=== PATIENT | female | born 1985 | race Caucasian/White ===

== ENCOUNTER 2019-03-16 20:10 | Emergency (ER) | payer BC ==
[2019-03-16] MEDS ORDERED: DIPHENHYDRAMINE 50 MG/ML VIAL ONE (21:46)
[2019-03-16] MEDS ORDERED: METOCLOPRAMIDE 5 MG TAB ONE (21:46)
[2019-03-16] MEDS ORDERED: dexAMETHasone 10 MG/ML VIAL ONE (22:02)
[2019-03-16] MEDS ORDERED: KETOROLAC 30 MG/ML INJ ONE (22:02)
[2019-03-16] MEDS ORDERED: ONDANSETRON 4 MG/2 ML VIAL ONE (22:03)
[2019-03-16] MEDS ORDERED: NA CHLORIDE 0.9% 1,000 ML ONE (22:03)
[2019-03-16 22:52] LABS: Urine Blood TRACE (NEG); Urine Glucose NEGATIVE (NEG); Urine Protein NEGATIVE (NEG)
--- NOTE | 2019-03-16 23:25 | ER ---
Nurse's Notes [facility] Name: Joe Pelletier Age: 33 yrs Sex: Female : 1985 Arrival Date: 03/16/2019 Time: 20:11 Bed 5 Private MD: Diagnosis: Headache Presentation: 03/16 20:25 Presenting complaint: Patient states: Headache, body aches, chills, low grade temp, ph nausea, and anxiety, states, " I've been having a panic attack for like 10 hours.". Transition of care: patient was not received from another setting of care. Onset of symptoms was March 16, 2019. Risk Assessment: Do you want to hurt yourself or someone else? Patient reports no desire to harm self or others. Initial Sepsis Screen: Does the patient meet any 2 criteria? No. Patient's initial sepsis screen is negative. Does the patient have a suspected source of infection? No. Patient's initial sepsis screen is negative. Care prior to arrival: None. 20:25 Method Of Arrival: Ambulatory ph 20:25 Acuity: HUNTER 3 ph Triage Assessment: 21:00 Headache History: The patient has had previous headaches and this one is similar to wh previous episodes. Pain: Pain began 1 day ago. Also complains of nausea. 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 - Social history:: Smoking status: Patient/guardian denies using tobacco. - Ebola Screening: : Patient negative for fever greater than or equal to 101.5 degrees Fahrenheit, and additional compatible Ebola Virus Disease symptoms Patient denies exposure to infectious person. Screenin:00 Abuse screen: Denies threats or abuse. Denies injuries from another. Nutritional wh screening: No deficits noted. Tuberculosis screening: No symptoms or risk factors identified. Fall Risk None identified. Assessment: 21:00 General: Appears in no apparent distress. Behavior is calm, cooperative, appropriate wh for age. Pain: Complains of pain in MIgraine Headache Pain does not radiate. Pain currently is 9 out of 10 on a pain scale. Neuro: Level of Consciousness is awake, alert, obeys commands, Oriented to person, place, time, situation, Appropriate for age Reports headache. Cardiovascular: Heart tones S1 S2. Respiratory: Airway is patent Respiratory effort is even, unlabored, Respiratory pattern is regular, symmetrical. GI: Abdomen is flat, non-distended. : No signs and/or symptoms were reported regarding the genitourinary system. EENT: No signs and/or symptoms were reported regarding the EENT system. Derm: Skin is intact, is healthy with good turgor, Skin is pink, warm \\T\\ dry. normal. Musculoskeletal: Circulation, motion, and sensation intact. 22:05 Reassessment: Patient appears in no apparent distress at this time. No changes from previously documented assessment. Patient and/or family updated on plan of care and expected duration. Pain level reassessed. Patient is alert, oriented x 3, equal unlabored respirations, skin warm/dry/pink. 23:14 Reassessment: Patient appears in no apparent distress at this time. No changes from previously documented assessment. Patient and/or family updated on plan of care and expected duration. Pain level reassessed. Patient is alert, oriented x 3, equal unlabored respirations, skin warm/dry/pink. 23:43 Reassessment: Patient appears in no apparent distress at this time. No changes from previously documented assessment. Patient and/or family updated on plan of care and expected duration. Pain level reassessed. Patient is alert, oriented x 3, equal unlabored respirations, skin warm/dry/pink. Patient denies pain at this time. Patient states feeling better. Patient states symptoms have improved. Vital Signs: 20:29 BP 139 / 83; Pulse 112; Resp 18; Temp 98.2; Pulse Ox 100% on R/A; Weight 82.55 kg; ph Height 5 ft. 11 in. (180.34 cm); 22:00 BP 96 / 57; Pulse 83; Resp 18; Pulse Ox 99% ; wh 23:15 BP 96 / 66; Pulse 79; Resp 18; Pulse Ox 98% ; wh 20:29 Body Mass Index 25.38 (82.55 kg, 180.34 cm) ph ED Course: 20:11 Patient arrived in ED. cf2 20:28 Triage completed. ph 21:00 Arm band placed on right wrist. 21:00 Patient has correct armband on for positive identification. Placed in gown. Bed in low wh position. Call light in reach. Side rails up X 1. Pulse ox on. NIBP on. 21:46 Maurice Wise PA is PHCP. 21:46 Rogerio Oropeza MD is Attending Physician. 21:56 Anastacia Daley is Primary Nurse. 22:00 Inserted saline lock: 22 gauge in right antecubital area, using aseptic technique. Blood collected. 23:43 No provider procedures requiring assistance completed. IV discontinued, intact, bleeding controlled, No redness/swelling at site. Administered Medications: 21:42 CANCELLED (PO instead): Reglan 10 mg IVP once; over 1 to 2 minutes dm5 21:56 Drug: Benadryl 25 mg Route: IVP; Site: right antecubital; 23:43 Follow up: Response: No adverse reaction 21:56 Drug: Reglan 10 mg Route: PO; 23:43 Follow up: Response: No adverse reaction 22:15 Drug: NS 0.9% 1000 ml Route: IV; Rate: 1 bolus; Site: right antecubital; 23:44 Follow up: Response: No adverse reaction; IV Status: Completed infusion 22:15 Drug: Decadron - Dexamethasone 10 mg Route: IVP; Site: right antecubital; 23:44 Follow up: Response: No adverse reaction 22:20 Drug: TORadol 15 mg Route: IVP; Site: right antecubital; 23:44 Follow up: Response: No adverse reaction; Pain is decreased 22:23 Drug: Zofran 4 mg Route: IVP; Site: right antecubital; 23:44 Follow up: Response: No adverse reaction Outcome: 23:22 Discharge ordered by . 23:43 Discharged to home ambulatory, with family. 23:43 Condition: stable 23:43 Discharge instructions given to patient, family, Instructed on discharge instructions, follow up and referral plans. medication usage, POC Demonstrated understanding of instructions, follow-up care, medications, POC Prescriptions given X 1. 23:44 Patient left the ED. Signatures: Marizol Easton RN RN ph Maurice Wise PA PA cp Habalo, Winsy Jackeline Weira cf2 Rey, Claudia RN dm5
--- NOTE | 2019-03-16 23:26 | EDPHYS ---
Physician Documentation [facility] Name: Joe Pelletier Age: 33 yrs Sex: Female : 1985 Arrival Date: 03/16/2019 Time: 20:11 Bed 5 Private MD: ED Physician Rogerio Oropeza HPI: 03/16 22:00 This 33 yrs old Female presents to ER via Ambulatory with complaints of cp Headache, Panic Attack. 22:00 The patient complains of pain to the top of head and forehead. cp 22:00 The patient describes the headache as aching, constant. Onset: The symptoms/episode cp began/occurred today. Associated signs and symptoms: Pertinent negatives: fever, neck stiffness, paresthesias, sinus congestion, sinus tenderness, vision loss. Headache History: The patient has had previous headaches and this one is similar to previous episodes. Patient reports she became upset today and started having an anxiety attack. Anxiety has resolved, but patient c/o headache similar to previous migraines. 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 - Social history:: Smoking status: Patient/guardian denies using tobacco. - Ebola Screening: : Patient negative for fever greater than or equal to 101.5 degrees Fahrenheit, and additional compatible Ebola Virus Disease symptoms Patient denies exposure to infectious person. ROS: 22:05 Constitutional: Negative for body aches, chills, fever, poor PO intake. cp 22:05 Eyes: Negative for injury, pain, redness, and discharge. cp 22:05 ENT: Negative for drainage from ear(s), ear pain, sinus congestion, sinus pain, sore throat, difficulty swallowing, difficulty handling secretions. 22:05 Neck: Negative for pain with movement, pain at rest, stiffness. 22:05 Cardiovascular: Negative for chest pain. 22:05 Respiratory: Negative for cough, shortness of breath, wheezing. 22:05 Abdomen/GI: Negative for abdominal pain, vomiting, diarrhea, constipation. 22:05 : Negative for urinary symptoms. 22:05 Skin: Negative for rash. 22:05 Neuro: Positive for headache, Negative for altered mental status, numbness, weakness. 22:05 Psych: Positive for anxiety, Negative for depression, auditory hallucinations, visual hallucinations. 22:05 All other systems are negative. Exam: 22:15 Constitutional: The patient appears in no acute distress, alert, awake, cp non-diaphoretic, non-toxic, well developed, well nourished. 22:15 Head/Face: Normocephalic, atraumatic. cp 22:15 Eyes: Periorbital structures: appear normal, Pupils: equal, round, and reactive to cp light and accomodation, Extraocular movements: intact throughout, Conjunctiva: normal, no exudate, no injection, Sclera: no appreciated abnormality, Lids and lashes: appear normal, bilaterally. 22:15 ENT: External ear(s): are unremarkable, Nose: is normal, Mouth: Lips: moist, Oral mucosa: pink and intact, moist, Posterior pharynx: is normal, airway is patent, no erythema, no exudate, Voice: is normal. 22:15 Neck: ROM/movement: is normal, is supple, without pain, no range of motions cp limitations, no nuchal rigidity. 22:15 Chest/axilla: Inspection: normal, Palpation: is normal, no crepitus, no tenderness. 22:15 Cardiovascular: Rate: normal, Rhythm: regular. 22:15 Respiratory: the patient does not display signs of respiratory distress, Respirations: normal, no use of accessory muscles, labored breathing, is not present, Breath sounds: are clear throughout, no decreased breath sounds, no stridor, no wheezing. 22:15 Abdomen/GI: Inspection: abdomen appears normal, Palpation: abdomen is soft and non-tender, in all quadrants. 22:15 Back: pain, is absent, ROM is normal. 22:15 Skin: no rash present. 22:15 Neuro: Orientation: to person, place \T\ time. Mentation: is normal, Cerebellar function: is grossly normal, Motor: moves all fours, strength is normal, Sensation: is normal, Gait: is steady, at a normal pace, without difficulty. Vital Signs: 20:29 BP 139 / 83; Pulse 112; Resp 18; Temp 98.2; Pulse Ox 100% on R/A; Weight 82.55 kg; ph Height 5 ft. 11 in. (180.34 cm); 22:00 BP 96 / 57; Pulse 83; Resp 18; Pulse Ox 99% ; wh 23:15 BP 96 / 66; Pulse 79; Resp 18; Pulse Ox 98% ; wh 20:29 Body Mass Index 25.38 (82.55 kg, 180.34 cm) ph MDM: 21:50 Patient medically screened. cp 23:20 Data reviewed: vital signs, nurses notes. cp 23:20 Counseling: I had a detailed discussion with the patient and/or guardian regarding: the cp historical points, exam findings, and any diagnostic results supporting the discharge/admit diagnosis, the need for outpatient follow up, a family practitioner, to return to the emergency department if symptoms worsen or persist or if there are any questions or concerns that arise at home. Response to treatment: the patient's symptoms have markedly improved after treatment, and as a result, I will discharge patient. 03/16 22:16 Order name: Urine Dipstick--Ancillary (enter results) [facility] 03/16 22:21 Order name: Urine --Ancillary (enter results) [facility] 03/16 21:54 Order name: IV; Complete Time: 22:23 cp 03/16 21:54 Order name: Urine Dipstick-Ancillary (obtain specimen); Complete Time: 22:24 03/16 21:54 Order name: Urine Test (obtain specimen); Complete Time: 22:24 cp Administered Medications: 21:42 CANCELLED (PO instead): Reglan 10 mg IVP once; over 1 to 2 minutes dm5 21:56 Drug: Benadryl 25 mg Route: IVP; Site: right antecubital; 23:43 Follow up: Response: No adverse reaction 21:56 Drug: Reglan 10 mg Route: PO; 23:43 Follow up: Response: No adverse reaction 22:15 Drug: NS 0.9% 1000 ml Route: IV; Rate: 1 bolus; Site: right antecubital; 23:44 Follow up: Response: No adverse reaction; IV Status: Completed infusion 22:15 Drug: Decadron - Dexamethasone 10 mg Route: IVP; Site: right antecubital; 23:44 Follow up: Response: No adverse reaction 22:20 Drug: TORadol 15 mg Route: IVP; Site: right antecubital; 23:44 Follow up: Response: No adverse reaction; Pain is decreased 22:23 Drug: Zofran 4 mg Route: IVP; Site: right antecubital; 23:44 Follow up: Response: No adverse reaction Disposition: 03/17 07:02 Co-signature as Attending Physician, Rogerio Oropeza MD Available for consultation at ps1 all times. Signing chart for administrative purposes. Not an endorsement of care. . Disposition: 03/16/19 23:22 Discharged to Home. Impression: Headache. - Condition is Stable. - Discharge Instructions: Migraine Headache. - Prescriptions for Zofran 4 mg Oral Tablet - take 1 tablet by ORAL route every 12 hours As needed; 20 tablet. - Medication Reconciliation Form, Thank You Letter, Antibiotic Education, Prescription Opioid Use form. - Follow up: Private Physician; When: 2 - 3 days; Reason: Recheck today's complaints. - Problem is new. - Symptoms have improved. Signatures: Dispatcher [employer] Claudia Garcia RN RN dm5 Marizol Easton RN RN ph Billie, Maurice, PA PA tigist Daley, Rogerio Vera MD MD ps1 Corrections: (The following items were deleted from the chart) 03/16 21:42 21:36 Reglan 10 mg IVP once; over 1 to 2 minutes ordered. dm5 dm5 23:44 23:22 03/16/2019 23:22 Discharged to Home. Impression: Headache. Condition is Stable. Forms are Medication Reconciliation Form, Thank You Letter, Antibiotic Education, Prescription Opioid Use. Follow up: Private Physician; When: 2 - 3 days; Reason: Recheck today's complaints. Problem is new. Symptoms have improved. cp
[2019-03-16 23:53] VITALS: TEMP 98.2
[2019-03-16 23:55] VITALS: BP 96/66; O2SAT 98
== END 2019-03-16 23:44 | disposition home or self-care (01) ==
LOC: ER 20:10
DX: R51 Headache (principal)
CPT/HCPCS: 96361; 81025; 81003; 96375; 96374; 99284; J1200; J1100; J7030; J2405